=== PATIENT | male | born 1985 | race Caucasian/White ===

== ENCOUNTER → 2020-11-16 | Outpatient (CLI) | payer OTHER ==
--- NOTE | 2020-11-15 09:25 | NUR ---
lmom with instructions and call back number
[~2020-11-16] VITALS: Ht 188 cm; Wt 93.7 kg
[~2020-11-16] MED LIST: CURCUMIN95% PO; DINO-LIFE1 CTB PO; HAIRSKINNAILS PO; PROBIOTIC FORMU1 CAP PO; VITAMINC1000TA PO; ZOFRAN ODT4 MG PO
[2020-11-16 08:50] VITALS: BP 108/73; PULSE 77
[2020-11-16 09:51] VITALS: BP 128/88; PULSE 75
== END ==
LOC: COL.RAD 08:15
DX: C43.9 Malignant melanoma of skin, unspecified (principal)
CPT/HCPCS: 32140

== ENCOUNTER 2021-04-04 19:16 | Emergency (ER) | payer OTHER ==
[~2021-04-04] VITALS: Ht 188 cm; Wt 90.9 kg
[~2021-04-04 19:16] MED LIST changes: -ZOFRAN ODT4 MG PO
[2021-04-04 19:30] VITALS: TEMP 99
[2021-04-04 19:59] LABS: BASO # 0.1 K/mm3 (0.0-0.2); BASO % 0.8 % (0.0-2.0); GRAN % 70.4 % (42.2-75.2); HEMATOCRIT 38.7 % (42.0-52.0); HEMOGLOBIN 13.7 g/dl (13.5-18.0); LYMPH # 1.2 K/mm3 (1.2-3.4); LYMPH % 17.3 % (20.0-51.0); MEAN CELL VOLUME 78 fl (80.0-100.0); MEAN CORPUSCULAR HEMOGLOBIN 28 pg (27.0-31.0); MEAN CORPUSCULAR HGB CONC 35 g/dl (33.0-37.0); MEAN PLATELET VOLUME 8.9 fl (7.4-10.4); MONO # 0.8 K/mm3 (0.1-0.6); MONO % 11.1 % (1.7-9.3); PLATELET COUNT 343 K/mm3 (130-400); RED BLOOD COUNT 4.95 M/mm3 (4.20-5.60); REDCELL DISTRIBUTION WIDTH-CV 11.8 % (11.5-14.5)
[2021-04-04 20:26] LABS: ALBUMIN 3.6 gm/dL (3.5-5.0); C-REACTIVE PROTEIN 5.37 mg/dL (0.00-0.50); CALCIUM 9.1 mg/dL (8.4-10.2); CREATININE, serum 0.81 mg/dL (0.72-1.25); POTASSIUM 3.5 mmol/L (3.5-4.5); TOTAL PROTEIN 7.4 gm/dL (6.2-8.1)
[2021-04-04 21:21] LABS: COLLECTION METHOD CLEAN CATCH
[2021-04-04 21:30] LABS: MUCOUS Present (NOT PRESENT); PH 7 (5-8); SQUAMOUS EPITHELIAL None Seen /hpf (0-10); URINE APPEARANCE Clear (CLEAR/HAZY); URINE BACTERIA Rare (NONE SEEN); URINE BILIRUBIN Negative (NEGATIVE); URINE BLOOD 1+ (NEGATIVE); URINE COLOR Yellow (YELLOW); URINE GLUCOSE Negative (NEGATIVE); URINE KETONE Trace (NEGATIVE); URINE LEUKOCYTE ESTERASE Negative (NEGATIVE); URINE NITRATE Negative (NEGATIVE); URINE PROTEIN(semi-quant) Negative (NEGATIVE); URINE UROBILINOGEN >=4.0 mg/dL (NEGATIVE)
[2021-04-04] MEDS ORDERED: ZOFRAN ODT4 MG PO (22:25)
[2021-04-04 22:56] VITALS: BP 114/73; PULSE 66
== END 2021-04-04 22:56 | disposition home or self-care (01) ==
LOC: COL.ER 19:16
PROVIDERS: Nurse Practitioner Primary Care
DX: R11.2 Nausea with vomiting, unspecified (principal); C43.72 Malignant melanoma of left lower limb, including hip; Z51.11 Encounter for antineoplastic chemotherapy; Z20.822 Contact with and (suspected) exposure to COVID-19
CPT/HCPCS: J1170; J2270; J2405; J2550; J7030; Q9967

== ENCOUNTER 2021-04-24 02:03 | Inpatient (IN) | payer OTHER ==
[~2021-04-24] VITALS: Ht 188 cm; Wt 77.9 kg
[~2021-04-24 02:03] MED LIST changes: +ZOFRAN ODT4 MG PO
[2021-04-24 02:49] LABS: BASO % 0.3 % (0.0-2.0); GRAN % 87.7 % (42.2-75.2); HEMATOCRIT 42.6 % (42.0-52.0); HEMOGLOBIN 14.4 g/dl (13.5-18.0); LYMPH # 0.5 K/mm3 (1.2-3.4); LYMPH % 4.2 % (20.0-51.0); MEAN CELL VOLUME 81 fl (80.0-100.0); MEAN CORPUSCULAR HEMOGLOBIN 27 pg (27.0-31.0); MEAN CORPUSCULAR HGB CONC 34 g/dl (33.0-37.0); MONO # 0.9 K/mm3 (0.1-0.6); MONO % 6.8 % (1.7-9.3); PLATELET COUNT 406 K/mm3 (130-400); RED BLOOD COUNT 5.29 M/mm3 (4.20-5.60); REDCELL DISTRIBUTION WIDTH-CV 13.1 % (11.5-14.5)
[2021-04-24 03:15] LABS: ALANINE AMINOTRANSFERASE 8 U/L (0-55); ALBUMIN 3.1 gm/dL (3.5-5.0); ALKALINE PHOSPHATASE 182 U/L (40-150); ANION GAP 19 mmol/L (7-16); AST,SGOT 22 U/L (5-34); BILIRUBIN,TOTAL 0.7 mg/dL (0.2-1.2); BLOOD UREA NITROGEN 38 mg/dL (9-21); CARBON DIOXIDE 26 mmol/L (22-29); CREATININE, serum 2.08 mg/dL (0.72-1.25); GLUCOSE 130 mg/dL (70-99); POTASSIUM 4.5 mmol/L (3.5-4.5); SODIUM 127 mmol/L (136-145); TOTAL PROTEIN 7.3 gm/dL (6.2-8.1)
[2021-04-24 03:17] LABS: ACETAMINOPHEN < 1.0 ug/mL (10-30); ALCOHOL(ethanol),MEDICAL < 10 mg/dL (0-10); CHLORIDE 82 mmol/L (98-107); SALICYLATE < 5.0 mg/dL (15.0-30.0)
[2021-04-24 03:34] LABS: TROPONIN-I < 0.010 ng/mL (0.00-0.033)
[2021-04-24] MEDS ORDERED: MSIR30 MG PO (04:59)
[2021-04-24] MEDS ORDERED: ATIVAN 1MG T1 MG/TAB PO (04:59)
[2021-04-24] MEDS ORDERED: MS CONTIN 660 MG/TAB PO (04:59)
[2021-04-24] MEDS ORDERED: ZOFRAN ODT8 MG PO (05:00)
[2021-04-24] MEDS ORDERED: PREVACID 30MG30 M1 PO (05:05)
[2021-04-24 07:00] VITALS: BP 115/76; PULSE 90; TEMP 97.6
--- NOTE | 2021-04-24 07:07 | NUR ---
PT ARRIVED AT 0545. THIS RN DID ADMISSION. UPDATED DAY SHIFT RNCOLTON OVER WHAT WAS DONE AND WHAT IS STILL NEEDED.
[2021-04-24 09:46] LABS: COLLECTION METHOD CLEAN CATCH
[2021-04-24 10:10] LABS: MUCOUS Present (NOT PRESENT); PH 5 (5-8); SQUAMOUS EPITHELIAL 0-2 /hpf (0-10); URINE APPEARANCE Cloudy (CLEAR/HAZY); URINE BACTERIA None Seen (NONE SEEN); URINE BILIRUBIN Negative (NEGATIVE); URINE BLOOD Negative (NEGATIVE); URINE COLOR Yellow (YELLOW); URINE GLUCOSE Negative (NEGATIVE); URINE KETONE Trace (NEGATIVE); URINE LEUKOCYTE ESTERASE Negative (NEGATIVE); URINE NITRATE Negative (NEGATIVE); URINE PROTEIN(semi-quant) 1+ (NEGATIVE); URINE RBC 0-2 /hpf (0-2)
[2021-04-24 10:21] LABS: TRICYCLIC ANTIDEPRESS URINE NEGATIVE
--- NOTE | 2021-04-24 11:49 | NUR ---
MAYRA met with the patient to discuss discharge plan. The patient appeared altered and had a difficult time answering questions. MAYRA then contacted the patient's mother, Cynthia (ph#[phone]), to complete intake. Cynthia reports that she just arrived to the hospital and is in the patient's room. MAYRA met with the patient and Cynthia. The patient lives in [place] with his mother. She reports that the patient has been needing some assistance with ADLs and started needing more assistance last night. She has been assisting the patient with his ADLs. He does not have any DME. Cynthia reports that the patient does not have a PCP here. She states that the patient has just been getting care from his oncologist, Dr. Fraser. She reports that the patient is on hold with his cancer treatments right now. She states the Dr. Fraser's office has ordered IV chemo for the patient and they are waiting for it to come in. The patient does not have a DPOA-HC. His mother would be interested in the patient getting one completed while here, once he is alert and oriented. MAYRA provided her with a form. Cynthia reports that the patient is still , but that they are in the process of a divorce. He has one daughter that is [id number]. Cynthia reports that he does not have custody of her though. MAYRA informed Cynthia how the patient's is his legal next of kin. Cynthia verbalized understanding. Cynthia plans to get his 's phone # to provide to MAYRA. Cynthia report that they have been seperated for years and does not think that the would want anything to do with or to be the decision make for the patient. Cynthia reports that the patient's father is also alive. MAYRA provided her with this SW's phone number. Cynthia reports that the plan is for the patient to return back home with her upon discharge. SW to continue to follow. *Discharge plan: home with mother*
[2021-04-24 11:50] VITALS: BP 106/66; PULSE 90; TEMP 96.8
[2021-04-24 11:59] VITALS: BP 106/66; PULSE 90; TEMP 98.6
[2021-04-24 15:46] VITALS: BP 121/74; PULSE 90; TEMP 97.7
--- NOTE | 2021-04-24 18:00 | NUR ---
Scheduled medications given. Shift assessment performed. Patient has been having trouble with pain management and agitation this shift. PRN doses of halodol and seroquel given. First doses help patient relax for a short time. Agitation has progressed since those doses. Patient refuses to stay in bed, and is considered a high fall risk. HELEN Rachel notified. Patient's mother at the bedside. IRAIDA Morales updated on situation. VSS. Patient orientated to name, but nothing else. Fall percautions in place.
[2021-04-24 19:55] VITALS: BP 119/78; PULSE 100; TEMP 97.6
--- NOTE | 2021-04-24 20:00 | NUR ---
Assessment complete. Patient's mom, Cynthia, at bedside. Patient is agitated, though not combative. He is setting off bed alarm often. His skin is pink/red from rubbing against the sheets; no open areas noted. PRN morphine adminstered, as patient states he is in pain. He is partially oriented and follows commands. Close monitoring in use and mother or nurse's aid is in patient's room at all times. Bed alarm set and call light in reach.
[2021-04-25 01:30] VITALS: BP 125/76; PULSE 94; TEMP 98
[2021-04-25 06:49] LABS: BASO % 0.2 % (0.0-2.0); GRAN # 11.4 K/mm3 (1.4-6.5); GRAN % 85.8 % (42.2-75.2); HEMOGLOBIN 12.6 g/dl (13.5-18.0); LYMPH # 0.6 K/mm3 (1.2-3.4); LYMPH % 4.6 % (20.0-51.0); MEAN CELL VOLUME 80 fl (80.0-100.0); MEAN CORPUSCULAR HEMOGLOBIN 28 pg (27.0-31.0); MEAN CORPUSCULAR HGB CONC 34 g/dl (33.0-37.0); MEAN PLATELET VOLUME 9.2 fl (7.4-10.4); MONO # 1.1 K/mm3 (0.1-0.6); MONO % 8.3 % (1.7-9.3); PLATELET COUNT 335 K/mm3 (130-400); RED BLOOD COUNT 4.59 M/mm3 (4.20-5.60)
[2021-04-25 06:53] LABS: HEMATOCRIT 36.9 % (42.0-52.0)
[2021-04-25 07:08] LABS: CALCIUM 9.1 mg/dL (8.4-10.2); CREATININE, serum 1.07 mg/dL (0.72-1.25); POTASSIUM 4.2 mmol/L (3.5-4.5)
--- NOTE | 2021-04-25 07:11 | NUR ---
[facility] CALLED TO [facility]
[2021-04-25 07:37] VITALS: BP 124/83; PULSE 95; TEMP 97.6
--- NOTE | 2021-04-25 08:30 | NUR ---
Scheduled medications given. Shift assessment performed. Patient visibly agitated. Patient asked if they would like pain medication, patient refused norco. Patient given PRN zofran. Fluids not hooked up, patient becomes very agitated when he is attached to extra tubing. Tele is off as well. Patient has reddened spots all over his body due to friction between patient and bed sheets. Soft clothing that covers upper and lower extremities place on patient to relieve some of the friction. PRN. Haldol given. PICC line in place, flushes with good blood return. No signs of IV complications. Patient's mother at the bedside. Mother very upset with the situation. Wants to give patient a shower. Explained to mom that it was unsafe at this time for patient to be in shower because he was so unsteady on his feet. Mom stated that she would take full responsibility for anything that were to occur and that she was to the point of taking him home.Dr. Hernandez notified.
[2021-04-25 12:30] VITALS: BP 117/71; PULSE 91; TEMP 86.9; TEMP 96.9
--- NOTE | 2021-04-25 13:02 | NUR ---
Talked with mother, along with Dr Rueda, about goals of care. She is reluctant to consider medication changes and yet knows her son is very agitated and not thinking clearly. She is planning to talk with Dr Avilez today about treatment options and recommendations and then can give us a better idea of what the goals of care are and what we will be working toward.
[2021-04-25 15:49] VITALS: BP 118/79; PULSE 94; TEMP 98.3
--- NOTE | 2021-04-25 17:17 | NUR ---
Patient agitation has improved from this AM. Patient has been able to rest a majority of the afternoon. Mother at the bedside. Patient was taken down for MRI, unable to complete. No s/s of pain or discomfort at this time. VSS. Call light in reach.
--- NOTE | 2021-04-25 18:45 | NUR ---
Attempted to give patient PO morphine, IV abx, and subq heparin. Patient refused medications. Patient's mother attempted to persuade patient to take medication. Patient still refused and told us to "Leave him alone." Documented in EMAR.
[2021-04-25 20:23] VITALS: BP 120/73; PULSE 96; TEMP 98.4
[2021-04-26 04:15] VITALS: BP 115/68; PULSE 90; TEMP 98
--- NOTE | 2021-04-26 07:00 | NUR ---
Report received from IRAIDA Morales. PT in bed resting with eyes closed, mother at bedside, ruth hargrove, will continue to monitor.
[2021-04-26 07:07] LABS: CALCIUM 9.1 mg/dL (8.4-10.2); CREATININE, serum 0.91 mg/dL (0.72-1.25); POTASSIUM 4.2 mmol/L (3.5-4.5)
[2021-04-26 07:17] LABS: HEMATOCRIT 36.8 % (42.0-52.0); HEMOGLOBIN 12.7 g/dl (13.5-18.0); MEAN CELL VOLUME 81 fl (80.0-100.0); MEAN CORPUSCULAR HEMOGLOBIN 28 pg (27-31); MEAN CORPUSCULAR HGB CONC 35 g/dl (33.0-37.0); MEAN PLATELET VOLUME 9.7 fl (7.4-10.4); PLATELET COUNT 238 K/mm3 (130-400); RED BLOOD COUNT 4.57 M/mm3 (4.20-5.60); REDCELL DISTRIBUTION WIDTH-CV 13.4 % (11.5-14.5)
[2021-04-26 08:30] VITALS: BP 130/85; PULSE 92; TEMP 97.5
[2021-04-26 08:34] LABS: BAND 3 % (0-10); LYMPHOCYTE 3 % (20.0-51.0); METAMYELOCYTE 1 % (0-0); NEUTROPHILS 89 % (42.0-75.2); PLATELET ESTIMATE NORMAL (NORMAL)
--- NOTE | 2021-04-26 09:00 | NUR ---
Assessment charted. Pt in bed resting, alert and oriented but lethargic. Pain meds given per orders and pt c/o consitpation. Per mom, pt requires fleets enemas at home. Will address with hospitalist team. Will ocntinue to monitor.
--- NOTE | 2021-04-26 09:48 | NUR ---
Spoke with pt and his mother this morning . They are still waiting to hear from Dr Avilez @[facility] but are hoping to hear from him today after he talks with Dr Fraser. If there is treatment available, they will certainly consider it but don't want to anticipate until have solid information. Support provided. Pt is requesting compression hose to help manage his edema of the left leg and this was relayed to his nurse Monica. he reports that his pain control is much better and he is feeling better today.
[2021-04-26 12:27] VITALS: BP 124/74; PULSE 91; TEMP 96.7
--- NOTE | 2021-04-26 13:03 | NUR ---
Called Evelio's nurse regarding pt and she will relay that pt's mom is waiting to hear from either E[facility] or PCP regarding recs for treatment. PT resting in bed agreeable to plan for MRI with contrast today and NPO until then. Will give report to Disha who will resume care.
--- NOTE | 2021-04-26 15:07 | NUR ---
Initial visit; Patient thanked Station Detective for looking in on him and when his mom joined him Station Detective let her know of the availability of spiritual care as well.
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
[2021-04-26 16:30] VITALS: BP 118/76; PULSE 93; TEMP 97.3
--- NOTE | 2021-04-26 18:09 | NUR ---
Patient remains in pain. Mother is at the bedside.
[2021-04-26 19:52] VITALS: BP 127/95; PULSE 65
[2021-04-27 00:46] VITALS: BP 133/79; PULSE 91; TEMP 98.1
[2021-04-27 04:04] VITALS: BP 117/68; PULSE 89; TEMP 98.3
[2021-04-27 06:41] LABS: HEMOGLOBIN 12.5 g/dl (13.5-18.0); MEAN CELL VOLUME 82 fl (80.0-100.0); MEAN CORPUSCULAR HEMOGLOBIN 28 pg (27-31); MEAN CORPUSCULAR HGB CONC 34 g/dl (33.0-37.0); MEAN PLATELET VOLUME 9.4 fl (7.4-10.4); PLATELET COUNT 183 K/mm3 (130-400); RED BLOOD COUNT 4.53 M/mm3 (4.20-5.60); REDCELL DISTRIBUTION WIDTH-CV 13.3 % (11.5-14.5)
[2021-04-27 06:50] LABS: HEMATOCRIT 36.9 % (42.0-52.0)
[2021-04-27 06:59] LABS: CALCIUM 9.2 mg/dL (8.4-10.2); CREATININE, serum 0.91 mg/dL (0.72-1.25); POTASSIUM 4.5 mmol/L (3.5-4.5)
--- NOTE | 2021-04-27 07:47 | NUR ---
ASSESSMENT COMPLETE FOR THIS SHIFT. PT MOSTLY SLEPT AND WATCHED TV TO NIGHT. PT CONTINUES TO HAVE LOWER LEFT EXTREMITY PAIN. PT GIVEN SCHEDULED OR PRN PAIN MEDICATION FOR PAIN. PT DENIES PALPITATIONS, SOB OR DIZZINESS. PT SEEMED A BIT DEPRESSED. PT STATES HE HAS NO OTHER NEEDS AT THIS TIME. CALL LIGHT WITHIN REACH.
[2021-04-27 07:58] LABS: BAND 8 % (0-10); LYMPHOCYTE 4 % (20.0-51.0); NEUTROPHILS 86 % (42.0-75.2); PLATELET ESTIMATE NORMAL (NORMAL)
[2021-04-27 08:23] VITALS: BP 125/82; PULSE 89; TEMP 97.4
--- NOTE | 2021-04-27 08:30 | NUR ---
Patient given PRN MS contin at approx. 0715. Patient called again at approx. 0740 stating that his pain was still unbearable. This RN told the patient that he would be able to have his scheduled 60mg of MS contin at 0830, patient felt he could not wait that long. Nataly CERVANTES was notified and a dose of IV morphine was ordered and given. Patient also vomited approx. 50mL of green emesis. Zofran had been previosly given at 0715.
--- NOTE | 2021-04-27 09:53 | NUR ---
I spoke with Lee today at bedside. His mother was not present. His thoughts are somewhat disorganizes but his pain seems to be better controlled although he still reports significant pain when asked. He had just recieved pain medication about 30 minutes before. When asked what he thought about further treatment for his cancer, he first responded that "I just don't know". He was able to tell me that he had done shots and infusions and had just stopped the oral medication for his cancer. He reports that his tumors are growing and causing his pain. When asked if he wished to continue to pursue treatment, he simply stated he wasn't sure--it might depend on what it was and then asked again if his tumore could be removed. I advised that this was doubtful but we will wait to hear what his mother knows about treatment being discussed.
--- NOTE | 2021-04-27 10:41 | NUR ---
public welfare worker attended rounds with the hospitalist team, patient and patient's mother Cynthia at bedside. Hospitalist provideds detailed information to the patient and the patient's mother on what role this hospital is having in the patient's care and that is to control his nausea and pain. Physician detailed out that he has not heard from Dr. Fraser on what the patient's oncology treatment plan is but is willing to keep the patient here 1 more day to try a new nausea medicine to see if that helps. Hospitalist and myself encouraged the patient to work with therapy today. Mother and patient are actively wanting to pursue cancer treatment's if his oncologist at [facility] and Dr. Fraser feel as if it will work. Upon discharge the patient will return home with his mother who is a nurse that it taking time off work to care for her son. Per Cynthia, the patient does not HH services currently as she "knows everything to do". Discharge plan: Home
--- NOTE | 2021-04-27 11:23 | NUR ---
Patient given PRN compazine and scopalamine for nausea/vomiting. PRN MS contin given as well. Patient also has dilaudid ordered, patient does not believe it will work but is willing to try.
[2021-04-27 11:26] VITALS: BP 122/81; PULSE 92; TEMP 97.6
--- NOTE | 2021-04-27 11:26 | NUR ---
Patient vomited at approx 1000 after being given his scheduled MS contin. No pills were present in the emesis. Patient told this RN he was in so much pain, he was about to drink his emesis to get the pain medicine from it.
--- NOTE | 2021-04-27 12:29 | NUR ---
Due to patient still being , patient verbalizes that he is appointing his mother as his DPOA-HC. Patient is weak and gave permission for for his mother Cynthia to fill out the form. Patient is able to sign form and verbalizes his understanding of what it means. This MAYRA and MAYRA Abel witnessed patient sign form. Original and copy given to the patient and copy placed in chart. Mother asks about Advanced Directives. Forms provided.
[2021-04-27] MEDS ORDERED: MS CONTIN 660 MG/TAB PO (17:01)
[2021-04-27] MEDS ORDERED: MSIR30 MG PO (17:03)
[2021-04-27] MEDS ORDERED: COMPAZINE 110 MG/TAB PO (17:04)
--- NOTE | 2021-04-27 17:55 | NUR ---
MAUREEN from DR. Harper to leave PICC line in place for discharge.
--- NOTE | 2021-04-27 18:24 | NUR ---
Patient discharging home w/ mother. Patient called and stated, "Im leaving tonight". Dr. Hidalgo was notified. Dr. Fraser and Dr. Hidalgo both spoke with the patient. Patient will be going home with his PICC in place for chemotherapy treatment outpatient, as requested by the patient and his mother. This was mentioned to Dr. Fraser and he felt it was fine, but ultimately wanted it left up to the patient. Discharge instructions were gone over with patient and his mother. Both parties verbalized understanding.
== END 2021-04-27 18:30 | disposition home or self-care (01) | DRG 92 ==
LOC: COL.ER 02:03 → MEDICAL 03:29
PROVIDERS: Emergency Medicine; Physician Assistant; ADMIT Internal Medicine
PROC: 02HV33Z Insertion of Infusion Device into Superior Vena Cava, Percutaneous Approach (ICD-10-PCS; principal; 2021-04-24)
DX: G92.8 Other toxic encephalopathy (principal); N17.9 Acute kidney failure, unspecified; C78.7 Secondary malignant neoplasm of liver and intrahepatic bile duct; C77.9 Secondary and unspecified malignant neoplasm of lymph node, unspecified; R65.10 Systemic inflammatory response syndrome (SIRS) of non-infectious origin without acute organ dysfunction; E22.2 Syndrome of inappropriate secretion of antidiuretic hormone; T42.4X5A Adverse effect of benzodiazepines, initial encounter; E86.0 Dehydration; E87.8 Other disorders of electrolyte and fluid balance, not elsewhere classified; E86.1 Hypovolemia; C43.71 Malignant melanoma of right lower limb, including hip; R91.1 Solitary pulmonary nodule; Z20.822 Contact with and (suspected) exposure to COVID-19
CPT/HCPCS: 99223-AI; 99233-AI; 99239; A9575; C1751; J0692; J0780; J1630; J1644; J2270; J2405; J3370; J7030; J7050

== ENCOUNTER 2021-05-04 10:00 | Outpatient (RCR) | payer OTHER ==
[2021-05-01 11:30] VITALS: BP 130/69; PULSE 85; TEMP 98.9
[2021-05-01 12:15] LABS: HEMATOCRIT 38.8 % (42.0-52.0); HEMOGLOBIN 13.7 g/dl (13.5-18.0); MEAN CELL VOLUME 79 fl (80.0-100.0); MEAN CORPUSCULAR HEMOGLOBIN 28 pg (27-31); MEAN CORPUSCULAR HGB CONC 35 g/dl (33.0-37.0); MEAN PLATELET VOLUME 9.4 fl (7.4-10.4); PLATELET COUNT 272 K/mm3 (130-400); REDCELL DISTRIBUTION WIDTH-CV 13.9 % (11.5-14.5)
[2021-05-01 12:31] LABS: BILIRUBIN,TOTAL 0.8 mg/dL (0.2-1.2); CALCIUM 8.8 mg/dL (8.4-10.2); CREATININE, serum 1.96 mg/dL (0.72-1.25); POTASSIUM 5.7 mmol/L (3.5-4.5); TOTAL PROTEIN 6.7 gm/dL (6.2-8.1)
[2021-05-01 12:54] LABS: LYMPHOCYTE 3 % (20.0-51.0); NEUTROPHILS 83 % (42.0-75.2); THYROID STIMULATING HORMONE 10.293 uIU/mL (0.350-4.940)
[2021-05-01 13:00] LABS: BAND 7 % (0-10)
[~2021-05-04 10:00] MED LIST changes: +ATIVAN 1MG T1 MG/TAB PO; +COMPAZINE 110 MG/TAB PO; +MS CONTIN 660 MG/TAB PO; +MSIR30 MG PO; +PREVACID 30MG30 M1 PO; +ZOFRAN ODT8 MG PO
[2021-05-04 10:41] VITALS: BP 132/77; PULSE 134; TEMP 97.8
[2021-05-04 10:41] LABS: ALBUMIN 2.8 gm/dL (3.5-5.0); BILIRUBIN,TOTAL 0.8 mg/dL (0.2-1.2); CALCIUM 8.6 mg/dL (8.4-10.2); CREATININE, serum 1.67 mg/dL (0.72-1.25); POTASSIUM 5.3 mmol/L (3.5-4.5); TOTAL PROTEIN 6.2 gm/dL (6.2-8.1)
== END 2021-05-08 09:22 ==
LOC: EUO 10:00
PROVIDERS: Internal Medicine
DX: C43.72 Malignant melanoma of left lower limb, including hip (principal)